=== PATIENT | female | born 1960 | race African-American/Black ===

== ENCOUNTER 2017-09-11 16:12 | Emergency (ER) | payer MEDICAID ==
[~2017-09-11] VITALS: Ht 170.2 cm; Wt 89.0 kg
[~2017-09-11 16:12] MED LIST: ACETAMINOPHEN; HYDROCODONE; NAPROXEN
[2017-09-11 17:22] LABS: BASOPHILS % 0.9 % (0.0-2.0); EOSINOPHILS % 0.8 % (0.0-5.0); HEMATOCRIT. 45.9 % (36.0-48.0); HEMOGLOBIN. 15.2 g/dL (12.0-16.0); LYMPHOCYTES % 42.1 % (20.0-50.0); MEAN CORPUSCULAR HEMOGLOBIN 26.2 pg (28.0-32.0); MEAN CORPUSCULAR VOLUME 78.8 fL (81.0-99.0); MEAN PLATELET VOLUME 9.2 fl (7.4-10.4); MONOCYTES % 8.1 % (2.0-8.0); NEUTROPHILS % 48.1 % (40.0-76.0); PLATELET 177 x1000/uL (130-400); RED BLOOD CELL COUNT 5.82 mill/uL (4.2-5.4); RED CELL DISTRIBUTION WIDTH 15.5 % (11.6-14.6)
[2017-09-11 17:23] LABS: CHLORIDE 102 mEq/L (98-107)
[2017-09-11 17:24] LABS: INR 1.1; PROTHROMBIN TIME 11.2 sec (9.4-11.6)
[2017-09-11] MEDS ORDERED: MORPHINE SULFATE 4 MG/ML CPJ (NOT FOR IM USE) IV STA (18:23)
[2017-09-11] MEDS ORDERED: ONDANSETRON HCL 4MG/2ML VIAL IV STA (18:23)
[2017-09-11] MEDS ORDERED: SODIUM CHLORIDE 0.9% 1,000 ML IV ONE (18:23)
[2017-09-11] MEDS ORDERED: FAMOTIDINE 20MG/2ML VIAL IV STA (18:23)
[2017-09-11 21:10] LABS: CLARITY URINE CLOUDY (CLEAR); COLOR URINE ORANGE (YELLOW); KETONES URINE 1+ (NEGATIVE); LEUKOCYTE ESTERASE URINE 2+ (NEGATIVE); NITRITE URINE NEGATIVE (NEGATIVE); OCCULT BLOOD URINE TRACE (NEGATIVE); PROTEIN URINE NEGATIVE (NEGATIVE)
[2017-09-11] MEDS ORDERED: SORBITOL 70% SOLN 30ML PO ONE (22:00)
[2017-09-11 22:50] VITALS: BP 141/78
== END 2017-09-11 23:25 | disposition home or self-care (01) ==
LOC: ER 16:54
DX: K57.90 Diverticulosis of intestine, part unspecified, without perforation or abscess without bleeding (principal); N39.0 Urinary tract infection, site not specified; K59.00 Constipation, unspecified; F12.10 Cannabis abuse, uncomplicated; F17.210 Nicotine dependence, cigarettes, uncomplicated
CPT/HCPCS: 36415; 71045; 74176; 80053; 81003; 83690; 85025; 85610; 93005; 96374; 96375; 99285; 99406; J2270; J2405; J3490; J7030; Z7610

== ENCOUNTER 2021-10-17 08:12 | Emergency (ER) | payer MEDICAID ==
[~2021-10-17] VITALS: Ht 170.2 cm; Wt 81.0 kg
[2021-10-17] MEDS ORDERED: KETOROLAC 60MG/2ML VIAL IM ONE (09:00)
[2021-10-17] MEDS ORDERED: IBUP-2029 MT (10:35)
[2021-10-17] MEDS ORDERED: KETOROLAC 60MG/2ML VIAL IM NR (11:00)
[2021-10-17 11:24] VITALS: BP 156/87
== END 2021-10-17 11:25 | disposition home or self-care (01) ==
LOC: ER 08:12
DX: M79.662 Pain in left lower leg (principal); M54.30 Sciatica, unspecified side; F12.10 Cannabis abuse, uncomplicated; I10 Essential (primary) hypertension; Z90.710 Acquired absence of both cervix and uterus; Z88.0 Allergy status to penicillin
CPT/HCPCS: 93971; 96372; 99284; J1885

== ENCOUNTER 2024-11-03 07:31 | Emergency (ER) | payer MEDICAID ==
[~2024-11-03] VITALS: Ht 170.2 cm; Wt 74.0 kg
[~2024-11-03 07:31] MED LIST changes: +IBUP-2029 MT
[2024-11-03 07:38] VITALS: O2SAT 100
[2024-11-03 08:09] LABS: BASOPHILS % 0.7 % (0.0-2.0); EOSINOPHILS % 1.2 % (0.0-5.0); HEMATOCRIT. 48.4 % (36.0-48.0); HEMOGLOBIN. 15.3 g/dL (12.0-16.0); LYMPHOCYTES % 34.5 % (20.0-50.0); MEAN PLATELET VOLUME 9.6 fl (7.4-10.4); MONOCYTES % 8.3 % (2.0-8.0); NEUTROPHILS % 55.3 % (40.0-76.0); PLATELET 206 x1000/uL (130-400); RED BLOOD CELL COUNT 6.15 mill/uL (4.2-5.4); RED CELL DISTRIBUTION WIDTH 15.3 % (11.6-14.6)
[2024-11-03 08:20] LABS: CREATININE 1.4 mg/dL (0.6-1.0); UREA NITROGEN BLOOD 20.0 mg/dL (9-23)
[2024-11-03 08:48] LABS: CLARITY URINE TURBID (CLEAR); COLOR URINE DARK YELLOW (YELLOW); GLUCOSE URINE NEGATIVE (NEGATIVE); KETONES URINE TRACE (NEGATIVE); LEUKOCYTE ESTERASE URINE TRACE (NEGATIVE); NITRITE URINE POSITIVE (NEGATIVE); OCCULT BLOOD URINE TRACE (NEGATIVE); PH URINE 5.0 (4.5-8.0); PROTEIN URINE 1+ (NEGATIVE); SPECIFIC GRAVITY URINE 1.025 (1.005-1.030); UROBILINOGEN URINE 1.0 E.U./dL (0.2-1.0)
[2024-11-03] MEDS ORDERED: TOPUD PO (09:15)
[2024-11-03] MEDS ORDERED: ONDA4TAB50 PO (09:17)
[2024-11-03 09:21] LABS: ASPARTATE AMINOTRANSFERASE 14 IU/L (<34); BILIRUBIN DIRECT 0.3 mg/dL (<=3.0); BILIRUBIN TOTAL 0.8 mg/dL (0.1-1.0); PROTEIN TOTAL 7.4 g/dL (6.0-8.3)
[2024-11-03] MEDS ORDERED: CEPH500T PO (09:28)
[2024-11-03 09:35] VITALS: BP 120/69; PULSE 94; RESP 15; TEMP 36.8; O2SAT 99
[2024-11-03 09:40] LABS: SQUAMOUS EPITHELIAL CELL URINE 3+ /lpf (RARE/1+)
[2024-11-03 09:42] LABS: BACTERIA URINE 4+
[2024-11-03 09:43] LABS: RBC URINE NONE SEEN /hpf (0-2)
== END 2024-11-03 09:40 | disposition home or self-care (01) ==
LOC: ER 07:31
DX: N39.0 Urinary tract infection, site not specified (principal); E11.9 Type 2 diabetes mellitus without complications; I10 Essential (primary) hypertension; F12.10 Cannabis abuse, uncomplicated; Z88.0 Allergy status to penicillin; Z90.710 Acquired absence of both cervix and uterus
CPT/HCPCS: 36415; 74176; 80048; 80076; 81003; 85025; 93005; 99284